=== PATIENT | female | born 1940 | race Caucasian/White ===

== ENCOUNTER 2018-02-06 11:41 | Emergency (ER) | payer MEDICARE ==
[~2018-02-06] VITALS: Ht 167.6 cm; Wt 47.6 kg
[2018-02-06 12:44] LABS: BASOPHILS # (AUTO) 0.1 (0.0-0.1); BASOPHILS % 0.6 % (0.0-1.0); EOSINOPHILS # (AUTO) 0.1 (0.0-0.4); EOSINOPHILS % 0.9 % (0.0-6.0); HEMATOCRIT 42.6 % (34.2-44.1); HEMOGLOBIN 14.4 g/dL (12.0-16.0); LYMPHOCYTES # (AUTO) 1.5 (1.0-3.2); LYMPHOCYTES % 16.4 % (18.0-39.1); MEAN CORPUSCULAR HGB CONC 33.8 g/dL (31-35); MEAN CORPUSCULAR VOLUME 85.7 fL (81-99); MONOCYTES # (AUTO) 0.7 (0.2-0.8); MONOCYTES % 7.9 % (4.4-11.3); NEUTROPHILS # (AUTO) 6.6 (2.1-6.9); PLATELET COUNT 364 x10e3/uL (140-360); RED BLOOD COUNT 4.97 x10e6/uL (3.6-5.1); RED CELL DISTRIBUTION WIDTH 12.2 % (11.7-14.4)
[2018-02-06 12:49] LABS: INR 1.08; PROTHROMBIN TIME 13.2 seconds (11.9-14.5)
[2018-02-06 12:50] LABS: PARTIAL THROMBOPLASTIN TIME 31.1 seconds (23.8-35.5)
[2018-02-06] MEDS ORDERED: SODIUM CHLORIDE 0.9% 1000ML 1,000 ML IV STA (12:52)
[2018-02-06 12:59] LABS: ALANINE AMINOTRANSFERASE 39 IU/L (0-55); ALBUMIN 3.8 g/dL (3.5-5.0); ALKALINE PHOSPHATASE 119 IU/L (40-150); BLOOD UREA NITROGEN 19 mg/dL (7-26); BUN/CREATININE RATIO 24 (6-25); CALCIUM 10.9 mg/dL (8.4-10.2); CARBON DIOXIDE 23 mmol/L (22-29); CHLORIDE 100 mmol/L (98-107); CREATINE KINASE 21 IU/L (29-168); CREATININE, SERUM 0.79 mg/dL (0.57-1.11); EST GLOMERULAR FILTRATION RATE > 60 ML/MIN (60-); GLUCOSE 90 mg/dL (74-118); MAGNESIUM 2.1 MG/DL (1.3-2.1); SODIUM 137 mmol/L (136-145)
[2018-02-06] MEDS ORDERED: ALBUTEROL/IPRATROPIUM 3 ML NEB NEB ONE (13:00)
--- NOTE | 2018-02-06 14:13 | Diagnostic Imaging Report ---
PROCEDURE: Frontal and lateral views of the chest. COMPARISON: None. INDICATIONS: COUGH FINDINGS: Lines/tubes: None. Lungs: The lungs are hyperinflated. 3.5 cm mass in the right upper lobe. Multiple other smaller nodularities in bilateral lungs with several nodules measuring up to 1.0 cm and the left lung. Focal left midlung consolidation. Pleura: There is no pleural effusion or pneumothorax. Blunting of bilateral costophrenic sulcus, likely related hyperinflation. Heart and mediastinum: Cardiac size is within normal limits. There is bilateral hilar lymph nodes. Prominent right paratracheal stripe, possibly paratracheal lymphadenopathy. Bones: No acute bony abnormality. IMPRESSION: 1. Bilateral pulmonary nodules and masses with a dominant 3.5 cm right upper lobe mass. This is highly concerning for primary lung malignancy with metastatic disease. Alternatively this could represent metastatic disease to the lungs. 2. Focal consolidative pneumonia in the left midlung. Dictated by: Rusty Cadena M.D. on 02/06/2018 at 14:13 Electronically approved by: Rusty Cadena M.D. on 02/06/2018 at 14:13
[2018-02-06 17:09] LABS: BILIRUBIN,URINE NEGATIVE (NEGATIVE); CLARITY,URINE HAZY (CLEAR); COLOR,URINE YELLOW (YELLOW); KETONES,URINE 3+ (NEGATIVE); LEUKOCYTE ESTERASE ,URINE NEGATIVE (NEGATIVE); NITRITE,URINE NEGATIVE (NEGATIVE); URINE UROBILINOGEN 0.2 mg/dL (0.2 - 1)
[2018-02-06 17:11] LABS: PROTEIN,URINE DIPSTICK 1+ (NEGATIVE)
[2018-02-06 17:26] LABS: BACTERIA,URINE FEW /HPF; EPITHELIAL CELLS,URINE FEW /LPF; WBC,URINE (MAN) 0-5 /HPF (0-5)
[2018-02-06] MEDS ORDERED: LEVOFLOXACIN 750MG/D5W 150ML 150 ML IV STA (17:49)
[2018-02-06] MEDS ORDERED: CEFTRIAXONE SOD 1 GM VIAL IV ONE (18:45)
[2018-02-06 18:52] VITALS: BP 130/85
== END 2018-02-06 19:12 | disposition home or self-care (01) ==
LOC: ER 11:41
DX: R06.00 Dyspnea, unspecified (principal); R05 Cough; J15.9 Unspecified bacterial pneumonia; C34.90 Malignant neoplasm of unspecified part of unspecified bronchus or lung
CPT/HCPCS: 36415; 71046; 80053; 81001; 82550; 82553; 83735; 83880; 84484; 85025; 85610; 85730; 93005; 94640; 99284; J0696; J7030